=== PATIENT | male | born 1940 | race Caucasian/White ===

== ENCOUNTER 2016-06-26 06:30 | Day surgery (SDC) | payer BC ==
--- NOTE | ~2016-06-26 | EGD ---
EGD REPORT [facility] [address] [address] NAME: WILMA LYONS : [birth year] STATUS : REG [facility]#: [id number] AGE: 76 ADM/REG DATE : 06/26/16 MR#: [id number] REPORT SERV DATE: 06/26/16 DICTATED BY: CHRISTY MOREAU DATE: 06/26/16 REPORT STATUS : Draft TRANS[facility]IBED BY: [facility] DATE: 06/26/16 [facility] Patient Name: Wilma Lyons Date of : 1940 Attending MD: CHRISTY MOREAU MD Procedure Date No Time: 06/26/2016 Procedure: Upper GI endoscopy Indications: Suspected esophageal reflux Referring MD: SANJAY BRUNSON Medicines: Sedation Required Anesthesia Staff Assistance Complications: No immediate complications. Estimated blood loss: Minimal. Procedure: Pre-Anesthesia Assessment: - ASA Grade Assessment: III - A patient with severe systemic disease. After obtaining informed consent, the endoscope was passed under direct vision. Throughout the procedure, the patient's blood pressure, pulse, and oxygen saturations were monitored continuously. The GIF [id number] was introduced through the mouth, and advanced to the third part of duodenum. The upper GI endoscopy was accomplished without difficulty. The patient tolerated the procedure well. Findings: LA Grade A (one or more mucosal breaks less than 5 mm, not extending between tops of 2 mucosal folds) esophagitis with no bleeding was found in the lower third of the esophagus. Diffuse mildly erythematous mucosa without bleeding was found in the gastric antrum. Biopsies were taken with a cold forceps for histology. A small hiatus hernia was present. The examined duodenum was normal. Biopsies were taken with a cold forceps for histology. Impression: - LA Grade A reflux esophagitis. - Erythematous mucosa in the antrum. Biopsied. - Hiatus hernia. - Normal examined duodenum. Biopsied. Recommendation: - Await pathology results. - Patient has a contact number available for emergencies. The signs and symptoms of potential delayed complications were discussed with the patient. Return to normal activities tomorrow. Written discharge instructions were provided to the patient. EGD REPORT [address] [address] NAME: WILMA LYONS : [birth year] STATUS : REG [facility] [place] PAT#: [id number] AGE: 76 ADM/REG DATE : 06/26/16 MR#: [id number] REPORT SERV DATE: 06/26/16 DICTATED BY: CHRISTY MOREAU. DATE: 06/26/16 REPORT STATUS : Draft TRANSCRIBED BY: [employer] DATE: 06/26/16 - Return to previous diet daily. - Await pathology results. Procedure Code(s): --- Professional --- 23001, Esophagogastroduodenoscopy, flexible, transoral; with biopsy, single or multiple Diagnosis Code(s): --- Professional --- K21.0, Gastro-esophageal reflux disease with esophagitis K31.9, Disease of stomach and duodenum, unspecified CPT copyright 2013 [employer]. All rights reserved. The codes documented in this report are preliminary and upon supervisor lending activities review may be revised to meet current compliance requirements. CHRISTY MOREAU MD 06/26/2016 8:47 AM This report has been signed electronically. Number of Addenda: 0 Note Initiated On: 06/26/2016 8:24 AM Scope Withdrawal Time 0 hours 0 minutes 0 seconds [address] [place] [address]
[~2016-06-26 06:30] MED LIST: ASAB PO; CREON DR PO; MIRALAX POWDER1 PKT PO; PRILO PO; PRINZIDE1 TA1 PO; ZOCOR20 PO
== END 2016-06-26 23:59 | disposition home or self-care (01) ==
LOC: DMU 06:30
PROVIDERS: Internal Medicine Gastroenterology
PROC: 0DB98ZX Excision of Duodenum, Via Natural or Artificial Opening Endoscopic, Diagnostic (ICD-10-PCS; 2016-06-26)
PROC: 0DB68ZX Excision of Stomach, Via Natural or Artificial Opening Endoscopic, Diagnostic (ICD-10-PCS; principal; 2016-06-26 08:30)
DX: K21.0 Gastro-esophageal reflux disease with esophagitis (principal); K29.60 Other gastritis without bleeding; K31.9 Disease of stomach and duodenum, unspecified; I10 Essential (primary) hypertension; I25.10 Atherosclerotic heart disease of native coronary artery without angina pectoris; K85.90 Acute pancreatitis without necrosis or infection, unspecified; M19.90 Unspecified osteoarthritis, unspecified site; Z88.2 Allergy status to sulfonamides; Z95.5 Presence of coronary angioplasty implant and graft; Z90.49 Acquired absence of other specified parts of digestive tract; Z79.899 Other long term (current) drug therapy
CPT/HCPCS: 88305